=== PATIENT | female | born 1965 | race Caucasian/White ===

== ENCOUNTER 2022-02-06 05:58 | Day surgery (SDC) | payer BC ==
[2022-02-03 10:47] VITALS: BMI 24.2
[2022-02-06] MEDS ORDERED: Lidocaine 1% MPF 2 ML VIAL ONE (07:51)
[2022-02-06] MEDS ORDERED: Lidocaine 1% PF 5 ML VIAL ONE (08:05)
[2022-02-06] MEDS ORDERED: PROPOFOL 40 ML ONE (08:05)
[2022-02-06] MEDS ORDERED: Glycopyrrolate 0.2 MG/ML 5 ML SYRINGE ONE (08:16)
[2022-02-06] MEDS ORDERED: PROPOFOL 20 ML ONE (08:30)
== END 2022-02-06 09:14 | disposition home or self-care (01) ==
LOC: CSHSDC 05:58
PROVIDERS: ATTEND Internal Medicine Gastroenterology
PROC: 0DBK8ZZ Excision of Ascending Colon, Via Natural or Artificial Opening Endoscopic (ICD-10-PCS; principal; 2022-02-06)
DX: Z12.11 Encounter for screening for malignant neoplasm of colon (principal); K63.5 Polyp of colon; K62.89 Other specified diseases of anus and rectum; I10 Essential (primary) hypertension
CPT/HCPCS: 88305; J2704